=== PATIENT | female | born 1975 | race Asian ===

== ENCOUNTER 2023-03-27 09:49 | Day surgery (SDC) | payer BC ==
[2023-03-22 15:03] VITALS: BMI 22.6
[2023-03-27 11:35] VITALS: TEMP 97
[2023-03-27 11:38] VITALS: BP 104/58; PULSE 62; RESP 16
== END 2023-03-27 12:21 | disposition home or self-care (01) ==
LOC: FASU-ENDO 09:49
PROVIDERS: ATTEND Internal Medicine Gastroenterology
PROC: 0DJD8ZZ Inspection of Lower Intestinal Tract, Via Natural or Artificial Opening Endoscopic (ICD-10-PCS; principal; 2023-03-27 10:51)
DX: Z12.11 Encounter for screening for malignant neoplasm of colon (principal)
CPT/HCPCS: 81025